=== PATIENT | male | born 1965 | race Caucasian/White ===

== ENCOUNTER 2023-07-22 17:23 | Inpatient (IN) | payer BC ==
[2023-07-22] MEDS ORDERED: Sodium Chloride 0.9% 10 ML Syringe FLUSH PRN (18:01)
[2023-07-22] MEDS ORDERED: Albuterol/Ipratropium 3.0-0.5 MG/3 ML Neb Soln NEB ONE (18:24)
[2023-07-22] MEDS ORDERED: methylPREDNISolone Sodium Succinate 125 MG/2 ML SDV IVPUSH ONE (18:24)
[2023-07-22 18:40] LABS: BASOPHILS ABSOLUTE AUTO 0.1 x10-3/uL (0.0-0.3); BASOPHILS PERCENT AUTO 0.8 % (0.3-3.8); EOSINOPHILS ABSOLUTE AUTO 0.3 x10-3/uL (0.0-0.6); EOSINOPHILS PERCENT AUTO 3.5 % (0.1-6.8); HEMOGLOBIN 18.9 g/dL (12.9-17.7); LYMPHOCYTES ABSOLUTE AUTO 1.5 x10-3/uL (0.5-4.5); LYMPHOCYTES PERCENT AUTO 15.7 % (15.8-45.3); MEAN CORPUSCULAR HEMOGLOBIN 32.5 pg (27.0-33.3); MEAN CORPUSCULAR HGB CONC 33.1 g/dL (28.7-35.3); MEAN CORPUSCULAR VOLUME 98.1 fL (80.8-98.7); MEAN PLATELET VOLUME 8.2 fL (6.7-11.0); MONOCYTES PERCENT AUTO 9.8 % (5.5-15.2); NEUTROPHILS ABSOLUTE AUTO 6.9 x10-3/uL (1.7-6.9); NEUTROPHILS PERCENT AUTO 70.2 % (40.3-71.8); PLATELET COUNT,PLT 234 x10(3)uL (117-477); RED BLOOD CELL COUNT 5.81 x10(6)uL (3.90-5.90); WHITE BLOOD CELL COUNT,WBC 9.9 x10-3/uL (3.2-10.1)
[2023-07-22 18:53] LABS: A/G RATIO 0.8; ALANINE AMINOTRANSFERASE,ALT 33 U/L (12-36); ALKALINE PHOSPHATASE 141 IU/L (56-112); ASPARTATE AMNIOTRANSFERASE,AST 27 IU/L (5-25); BILIRUBIN TOTAL 0.9 mg/dL (0.1-1.3); BLOOD UREA NITROGEN,BUN 18 mg/dL (7-18); CHLORIDE,CL 98 mmol/L (100-110); EST CRCL DRUG DOSING (CG) 94.76 mL/min; ESTIMATED GFR 88 mL/min (>60); GLUCOSE RANDOM 100 mg/dL (80-116); MAGNESIUM 1.6 mg/dL (1.8-2.5); POTASSIUM,K 3.9 mmol/L (3.5-5.3); PROTEIN TOTAL,TP 6.9 g/dL (6.0-8.0); SODIUM,NA 140 mmol/L (135-145)
[2023-07-22 18:55] LABS: BASE EXCESS VENOUS,POC 11 mmol/L (-2 - 3+); PCO2 VENOUS,POC 54 mmHg (41-51); PH VENOUS,POC 7.46 pH Units (7.32-7.43)
[2023-07-22 18:58] LABS: CARBON DIOXIDE,CO2 40 mmol/L (21-32)
[2023-07-22 18:59] LABS: C-REACTIVE PROTEIN 1.19 mg/dL (<0.50); TROPONIN I 27.6 pg/mL (4.0-60.3)
[2023-07-22 19:22] LABS: INFLUENZA A NAA NEGATIVE (NEGATIVE); INFLUENZA B NAA NEGATIVE (NEGATIVE); RESPIRATORY SYNCYTIAL VIR NAA NEGATIVE (NEGATIVE)
[2023-07-22 19:24] LABS: CORONAVIRUS COVID-19 NAA NEGATIVE (NEGATIVE)
[2023-07-22] MEDS ORDERED: Iopamidol 755 Mg/ML 100 ML Bottle IV SCH (20:45)
[2023-07-22] MEDS ORDERED: Albuterol 0.083% 2.5 MG/3 ML Neb Soln NEB ONE ×2 (22:52→23:24)
[2023-07-22 23:03] LABS: BASE EXCESS VENOUS,POC 7 mmol/L (-2 - 3+); PCO2 VENOUS,POC 67 mmHg (41-51); PH VENOUS,POC 7.35 pH Units (7.32-7.43)
[2023-07-22] MEDS ORDERED: Magnesium Sulfate/Water 2 GM in Premix Bag 1 BAG IV ONE (23:24)
[2023-07-22] MEDS ORDERED: Sodium Chloride 0.9% 1,000 ML IV SCH (23:45)
[2023-07-23 00:48] LABS: BASE EXCESS VENOUS,POC 8 mmol/L (-2 - 3+); PCO2 VENOUS,POC 65 mmHg (41-51); PH VENOUS,POC 7.37 pH Units (7.32-7.43)
[2023-07-23] MEDS ORDERED: Albuterol 0.083% 2.5 MG/3 ML Neb Soln NEB PRN (01:20)
[2023-07-23] MEDS ORDERED: Ondansetron 4 MG/2 ML SDV IV PRN (01:20)
[2023-07-23] MEDS ORDERED: Acetaminophen 325 MG Tab PO PRN (01:20)
[2023-07-23] MEDS ORDERED: Nicotine 21 MG/24 Hr Patch TRDERM SCH ×2 (01:30→21:00)
[2023-07-23] MEDS ORDERED: Enoxaparin 40 MG/0.4 ML Syringe SUBCUT SCH ×2 (01:30→21:00)
[2023-07-23] MEDS ORDERED: Doxycycline 100 MG Tab PO SCH (01:30)
[2023-07-23] MEDS ORDERED: cefTRIAXone 2 GM Vial IVPUSH SCH (01:30)
[2023-07-23] MEDS ORDERED: methylPREDNISolone Sodium Succinate 40 MG/1 ML SDV IVPUSH SCH (06:00)
[2023-07-23] MEDS: Albuterol/Ipratropium 3.0-0.5 MG/3 ML Neb Soln NEB SCH ×4 (06:16→21:41)
[2023-07-23 06:51] LABS: HEMATOCRIT 55.7 % (38.3-50.1); HEMOGLOBIN 18.1 g/dL (12.9-17.7); MEAN CORPUSCULAR HEMOGLOBIN 32.1 pg (27.0-33.3); MEAN CORPUSCULAR HGB CONC 32.6 g/dL (28.7-35.3); MEAN CORPUSCULAR VOLUME 98.5 fL (80.8-98.7); MEAN PLATELET VOLUME 8.1 fL (6.7-11.0); PLATELET COUNT,PLT 229 x10(3)uL (117-477); RED BLOOD CELL COUNT 5.65 x10(6)uL (3.90-5.90); RED CELL DISTRIBUTION WIDTH 17.2 % (12.4-15.0); WHITE BLOOD CELL COUNT,WBC 6.3 x10-3/uL (3.2-10.1)
[2023-07-23 06:56] LABS: BLOOD UREA NITROGEN,BUN 16 mg/dL (7-18); CALCIUM 8.7 mg/dL (8.6-10.2); CHLORIDE,CL 100 mmol/L (100-110); CREATININE 0.8 mg/dL (0.70-1.30); EST CRCL DRUG DOSING (CG) 118.45 mL/min; ESTIMATED GFR 103 mL/min (>60); GLUCOSE RANDOM 180 mg/dL (80-116); POTASSIUM,K 4.5 mmol/L (3.5-5.3); SODIUM,NA 140 mmol/L (135-145)
[2023-07-23 07:03] LABS: BASE EXCESS VENOUS,POC 7 mmol/L (-2 - 3+); PCO2 VENOUS,POC 68 mmHg (41-51); PH VENOUS,POC 7.34 pH Units (7.32-7.43)
[2023-07-23 07:05] LABS: CARBON DIOXIDE,CO2 40 mmol/L (21-32)
[2023-07-23 07:12] LABS: LYMPHOCYTES PERCENT MAN 4 % (13-37); MONOCYTES PERCENT MAN 1 % (4-12); SEG NEUTROPHILS PERCENT MAN 95 % (46-82)
[2023-07-23] MEDS ORDERED: Non-Formulary Medication 1 Each (Fluticasone/Umeclidin/Vilanter [Trelegy Ellipta 100-62.5- INH SCH (09:00)
[2023-07-23] MEDS: Furosemide 20 MG Tab PO SCH (09:39)
[2023-07-23] MEDS: methylPREDNISolone Sodium Succinate 125 MG/2 ML SDV IVPUSH SCH ×2 (15:00→21:41)
[2023-07-24] MEDS: Albuterol/Ipratropium 3.0-0.5 MG/3 ML Neb Soln NEB SCH (06:03)
[2023-07-24] MEDS: methylPREDNISolone Sodium Succinate 125 MG/2 ML SDV IVPUSH SCH (06:03)
[2023-07-24 06:40] LABS: HEMATOCRIT 53.3 % (38.3-50.1); HEMOGLOBIN 17.7 g/dL (12.9-17.7); MEAN CORPUSCULAR HEMOGLOBIN 32.8 pg (27.0-33.3); MEAN CORPUSCULAR HGB CONC 33.1 g/dL (28.7-35.3); MEAN CORPUSCULAR VOLUME 98.9 fL (80.8-98.7); MEAN PLATELET VOLUME 8.3 fL (6.7-11.0); PLATELET COUNT,PLT 211 x10(3)uL (117-477); RED BLOOD CELL COUNT 5.39 x10(6)uL (3.90-5.90); WHITE BLOOD CELL COUNT,WBC 12.8 x10-3/uL (3.2-10.1)
[2023-07-24 06:44] LABS: BLOOD UREA NITROGEN,BUN 21 mg/dL (7-18); BUN/CREATININE RATIO 26.3 (9-20); CALCIUM 8.8 mg/dL (8.6-10.2); CARBON DIOXIDE,CO2 38 mmol/L (21-32); CHLORIDE,CL 99 mmol/L (100-110); CREATININE 0.8 mg/dL (0.70-1.30); EST CRCL DRUG DOSING (CG) 118.45 mL/min; ESTIMATED GFR 103 mL/min (>60); GLUCOSE RANDOM 173 mg/dL (80-116); POTASSIUM,K 4.8 mmol/L (3.5-5.3); SODIUM,NA 138 mmol/L (135-145)
[2023-07-24 07:03] LABS: BAND PERCENT MAN 5 % (0-6); LYMPHOCYTES PERCENT MAN 3 % (13-37); MONOCYTES PERCENT MAN 2 % (4-12); SEG NEUTROPHILS PERCENT MAN 90 % (46-82); TOXIC GRANULATION MANY (NOT SEEN)
[2023-07-24] MEDS: Furosemide 20 MG Tab PO SCH (08:58)
== END 2023-07-24 09:15 | disposition home or self-care (01) | DRG 133 ==
LOC: FB.ED 17:23 → FB.MS 07-23 01:15
PROVIDERS: ADMIT Emergency Medicine; ATTEND Family Medicine
DX: J96.01 Acute respiratory failure with hypoxia (principal); J96.02 Acute respiratory failure with hypercapnia; J44.1 Chronic obstructive pulmonary disease with (acute) exacerbation; F17.210 Nicotine dependence, cigarettes, uncomplicated; E04.1 Nontoxic single thyroid nodule; E66.9 Obesity, unspecified; I10 Essential (primary) hypertension; Z98.890 Other specified postprocedural states; Z11.52 Encounter for screening for COVID-19; Z79.51 Long term (current) use of inhaled steroids; Z79.899 Other long term (current) drug therapy; Z68.41 Body mass index [BMI] 40.0-44.9, adult
CPT/HCPCS: 0241U; 36415; 71046; 71275; 80048; 80053; 83735; 83880; 84484; 85025; 85379; 86140; 93005; 94150; 94640; 96361; 96365; 96375; 99285-25; A9270-GY; J0696; J2920; J2930; J3475; J7030; J7620; Q9967